=== PATIENT | female | born 1995 | race Caucasian/White ===

== ENCOUNTER → 2020-05-05 10:48 | Outpatient (CLI) | payer OTHER, SELFPAY ==
--- NOTE | ~2020-05-05 | US_ITS ---
EXAMINATION: US pelvic complete EXAM DATE: 05/05/2020 11:07 INDICATION: Missing IUD string. TECHNIQUE: Pelvic transabdominal sonogram was performed. There are multiple grayscale and Doppler im ages available for interpretation. There is no prior study for comparison. FINDINGS: Uterus measures 7.5 x 3.0 x 5.0 cm, with IUD centrally located inside the endometrial cavi ty. Endometrial stripe measures 5 mm, within normal limits. There is no free pelvic fluid. Right adnexa: The ovary measures 3.1 x 2.9 x 3.4 cm and is morphologically normal. Ovarian vascular f low confirmed. Left adnexa: The ovary measures 2.9 x 1.8 x 3.7 cm and is morphologically normal. Ovarian vascular fl ow confirmed. IMPRESSION: 1. IUD in expected position. Reviewed, dictated and finalized at location A.
== END ==
PROVIDERS: Visit Provider Nurse Practitioner
DX: Z30.431 Encounter for routine checking of intrauterine contraceptive device (principal)
CPT/HCPCS: 76856

== ENCOUNTER → 2022-08-19 14:07 | Outpatient (CLI) | payer OTHER, SELFPAY ==
--- NOTE | ~2022-08-19 | US_ITS ---
EXAMINATION: US thyroid DATE: 08/19/2022 14:24 INDICATION: Thyroid nodule TECHNIQUE: Multiple ultrasound images of the thyroid were obtained. COMPARISON: None. FINDINGS: The right thyroid lobe measures 4.7 x 1.2 x 1.4 cm. The left thyroid lobe measures 5.2 x 1.6 x 2.0 c m. 2.3 cm wider than tall solid hypoechoic nodule with smooth margins and without echogenic foci in the left thyroid. The nodule anteriorly bulges the surface of the thyroid gland without definitive ex trapleural extension. (TI-RADS 4, moderately suspicious , FNA if >=1.5 cm, annual followup is >=1 cm) . There is normal echotexture, echogenicity and vascular flow throughout the thyroid gland. IMPRESSION: 1. 2.3 cm TI RADS 4 left thyroid nodule. Ultrasound-guided biopsy is recommended. Reviewed, dictated and finalized at location B. IMPRESSION: 1. 2.3 cm TI RADS 4 left thyroid nodule. Ultrasound-guided biopsy is recommende d.
== END ==
PROVIDERS: PCP Physician Assistant; Visit Provider Nurse Practitioner
DX: E04.1 Nontoxic single thyroid nodule (principal); E07.9 Disorder of thyroid, unspecified
CPT/HCPCS: 76536

== ENCOUNTER 2023-05-15 14:56 | Outpatient (CLI) | payer OTHER, SELFPAY ==
--- NOTE | ~2023-05-15 | US_ITS ---
EXAMINATION: US transvaginal DATE: 05/15/2023 15:26 INDICATION: Displacement of intrauterine contraceptive device TECHNIQUE: Multiple endovaginal sonographic images of the pelvis were obtained. COMPARISON: 05/05/2020 FINDINGS: The uterus measures 7.2 x 3.3 x 4.2 cm. The IUD is in expected position. The endometrial co mplex measures 5 mm. The right ovary measures 1.9 x 1.8 x 2.2 cm. The left ovary measures 3 x 2.4 x 2 .4 cm. There is normal vascular flow in the ovaries. There is no free fluid in the pelvis. IMPRESSION: 1. IUD in expected position. Reviewed, dictated and finalized at location A.
== END 2023-05-15 14:57 ==
PROVIDERS: PCP Physician Assistant; Visit Provider Nurse Practitioner
DX: N93.8 Other specified abnormal uterine and vaginal bleeding (principal); T83.32XA Displacement of intrauterine contraceptive device, initial encounter
CPT/HCPCS: 76830

== ENCOUNTER 2024-02-26 07:48 | Outpatient (CLI) | payer OTHER, SELFPAY ==
--- NOTE | ~2024-02-26 | US_ITS ---
EXAMINATION: US thyroid DATE: 02/26/2024 08:13 INDICATION: Thyroid nodule follow-up. Patient reportedly underwent thyroid biopsy in October 2022, yielding benign results (by report). T his presumably was of the nodule in the left lobe of the thyroid gland, as no additional nodules are present TECHNIQUE: Multiple ultrasound images of the thyroid were obtained. COMPARISON: None. FINDINGS: The right thyroid lobe measures 6.1 x 1.3 x 1.4 cm. The left thyroid lobe measures 5.4 x 2.0 x 2.1 cm. Within the upper pole of the left lobe of the thyroid gland is a 29 x 17 x 21 mm nodule: Composition -solid or almost completely solid (2) Echogenicity - hypoechoic Shape - wider than tall Margin - smooth Echogenic foci - none. = TR2 not suspicious. The isthmus measures 2 mm in anterior to posterior dimension. There is normal echotexture and echogenicity throughout the thyroid gland. No discrete nodules identi fied. Normal vascular flow is present. IMPRESSION: TR2 nodule in the left lobe of the thyroid gland measuring 29 mm mm in greatest dimension. This nodule is not sonographically suspicious and no FNA is recommended Follow-up may be performed. Reviewed, dictated and finalized at location A. [employer]
== END 2024-02-26 07:49 | disposition home or self-care (01) ==
LOC: MICIMG 07:50
PROVIDERS: PCP Physician Assistant; Visit Provider Physician Assistant
DX: E04.1 Nontoxic single thyroid nodule (principal)
CPT/HCPCS: 76536